=== PATIENT | male | born 1985 | race Caucasian/White ===

== ENCOUNTER 2019-04-29 07:00 | Outpatient (RCR) | payer OTHER, SELFPAY ==
--- NOTE | 2019-04-04 09:11 | HP.PTEVAL_ITS ---
Patient's Visit Information DESTINY MALAGON is a 33 year old M referred to Physical Therapy by Bravo Hatch DPM with a diagnosis of Plantar Fascitis. Date of Evaluation: 04/04/19 Physical Therapist: Arabella Meza DPT - Visit Plan Frequency: 2-3x /Week Duration: 4 Weeks Plan: Focus on core and hip strength/stabilization. - Subjective Findings: MD is thinking Plantar Fascitis- left heel has been bothering him for weeks- worse at end of day- good in the AM- was still running a lot. Last weekend he had a 50 mile rave- 5 miles in it dimitri hurt then every step was miserable- trail run. [place] better going up hill- flats were the worst. Able to finish the race- next day was miserable. Has not run in 8 days. Went and saw Dr. Hatch- had x-rays no bone spurs. Did have edema in bilateral LE. Had EPAT 2x last week. No brusing but did have mild edema. Pain is located in the distal calcaneus. Today he is 80% walking- knows its there. Has been wearing the night splint- tried to use a boot but it was miserable but being barefoot is the best/sandles. Plans to do EPAT this week as well. Next race is at the end of April-100 mile- both trail and road. Describes the pain as sharp and discomfort. No radiating pain. Running in a trail shoe- [employer]-fairly new- no insert. 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 Left side- does have mild radiating pain to the gluts- has always had underlying low back issues. Back feels better when he is running. Running- anywhere from 50- 70 miles a week 5-6 days- trails and roads. Does some pushups, sit ups and squats minor right before bed- maintainance. Sleep: not disturbed- side sleeper. PMHx: none Meds: none - Objective Posture: poor in standing and sitting- FH, RS, increased kyphosis in the thoracic spine. Gait: no deviation noted. Observation: good arch bilaterally. ROM: Lumbar: flexion hands to floor but slow to rise, Extn: neutral and reports discomfort, SB to the left WNL, SB to the right: WNL but reports discomfort, Rotation:decreased by 25% bilaterally with discomfort. Hip: left IR is tight but not diminished ankle/knee: WFL. SLS: 30 sec mild hip drop and discomfort in the heel. Palpation: tender along heel on the left foot on the medial side. lumbar paraspinals and gluts on the left. HR/TR: WNL. Strength: Core: poor, Hip: flexion: 4+/5, Abd: 4/5, Clam Glut Med: 4-/5, Extn: 4+/5, IR: 4/5, ER: 4- /5. Flex: HS: moderate, Gastroc: moderate. Special Test: slump on left: positive, Dural Signs: positive, LLD: negative Pelvic Alignment: WNL - Goals Goal 1:: Patient will be I with HEP and progression Goal Time Frame: 4-6 Weeks Goal 2:: Patient will maintain proper posture t/o tx session to demo increased core s/s Goal Time Frame: 4-6 Weeks Goal 3:: Patient will report 0/10 pain with running Goal Time Frame: 4-6 Weeks Goal 4:: Patient will demo 4+/5 strength in bilateral hips Goal Time Frame: 4-6 Weeks - Rehabilitation Potential Physical Therapy Diagnosis: Patient presents with hypomobility- he has decreased strength and stabilization of the lumar spine and pelvis leading to decreased ability to perform ADL's and pain in the LE with running Rehabilitation Potential: Fair - Anticipated Interventions Patient/Client Instruction: Educate patient on: Benefits of Fitness Program Therapeutic Exercise to Include: Strength training, Endurance training, Balance training, Body mechanics, Postural training, Flexibilty training, Gait and locomotor training, Dynamic Lumbar Stabilization, Vasquez Exercises For the Purpose of:: To improve muscle performance and motor function TENS: Yes Cryotherapy (ice pack, ice massage): Yes Thermo therapy (hot pack): Yes Ultrasound (thermal/non thermal): No For the Purpose of:: To decrease pain Thank you for the opportunity to evaluate your patient. For Medicare and Medicare HMO plans, please review the plan of care and approve it. It will need to be FAXED BACK to us at [phone] for Medicare purposes. For Medicare only, by signing this I certify the plan of care. Please let me know if there are questions or concerns regarding this plan of care. Physician Signature: Date:
--- NOTE | 2019-07-22 09:41 | HP.PT.NRP ---
HP - Discharge Summary (1) - Patient Information DESTINY MALAGON was seen in my office for initial evaluation on 04/04/19. The following Plan of Care was established for this patient: Initial Frequency: 2-3x /Week Initial Duration: 4 Weeks - Anticipated Interventions Patient/Client Instruction: Educate patient on: Benefits of Fitness Program Therapeutic Exercise to Include: Strength training, Endurance training, Balance training, Body mechanics, Postural training, Flexibilty training, Gait and locomotor training, Dynamic Lumbar Stabilization, Vasquez Exercises For the Purpose of:: To improve muscle performance and motor function TENS: Yes Cryotherapy (ice pack, ice massage): Yes Thermo therapy (hot pack): Yes Ultrasound (thermal/non thermal): No For the Purpose of:: To decrease pain This patient was last seen in our office . Pertinent comments regarding their Physical therapy will appear below: Patient has not attended PT in 4 weeks and is appropriate for d/c- return to MD for further evaluation as needed. At this point I will be discontinuing this patient from physical therapy. I would be happy to see this patient again in the future if found appropriate by the physician. Thank you! TOY LedezmaT
== END 2019-04-29 19:00 | disposition home or self-care (01) ==
LOC: PT 07:00
PROVIDERS: Family Provider Family Medicine; PCP Family Medicine; Visit Provider Podiatrist
DX: M72.2 Plantar fascial fibromatosis (principal)
CPT/HCPCS: 97110; 97162; 97530

== ENCOUNTER → 2019-08-02 16:46 | Outpatient (CLI) | payer OTHER, SELFPAY ==
[2017-12-01 09:53] VITALS: BMI 21.1
[2019-08-02 18:07] LABS: Hematocrit 45.2 % (40-54); Hemoglobin 14.9 g/dL (13.0-16.5); Mean Corpuscular Hgb 29.4 pg (27.0-32.0); Mean Corpuscular Volume 89.3 fL (80-94); Mean Platelet Vol. 9.5 fl (6.2-12.0); Platelet Count 335 K/mm3 (150-450); RBC Distribution Width CV 11.7 % (11.6-14.6); RBC Distribution Width SD 37.5 fl (35.1-43.9); Red Blood Count 5.06 M/mm3 (4.6-6.2); White Blood Count 7.9 K/mm3 (4.4-11.0)
[2019-08-02 18:39] LABS: Progesterone Level 0.32 ng/mL (See Comment); Vitamin B12 586 pg/mL (211-911)
[2019-08-02 18:48] LABS: Homocysteine 10.7 umol/L (3.2-10.7)
[2019-08-02 19:58] LABS: ALB/GLOB Ratio 1.2 RATIO (0.9-2.4); AST(SGOT) 20 U/L (15-37); Alanine Aminotransfer ALT/SGPT 24 U/L (16-61); Albumin, Serum 4.3 g/dL (3.2-5.0); Alkaline Phosphatase 62 U/L (45-117); Anion Gap 9 (5-15); BUN 20 mg/dL (7-18); BUN/Creat Ratio 22.5 RATIO (10-20); CRP < 2.90 mg/L (0.0-3.0); Chloride 103 mmol/L (98-107); Cholesterol 180 mg/dL (200); Creatinine, Serum 0.89 mg/dL (0.70-1.30); EST Glomerular Filtration Rate 104 mL/min (>60); Est Glom Filt Rate - Afr Amer 126 mL/min (>60); Estradiol 26.1 pg/mL; Free T3 2.3 pg/mL (2.18-3.98); Globulin 3.6 g/dL (2.2-4.2); Glucose 82 mg/dL (74-106); High Density Lipoprotein 88 mg/dL; Iron 79 ug/dL (65-175); Luteinizing Hormone 2.6 mIU/mL; Magnesium 2.3 mg/dL (1.6-2.6); PSA,Total - Annual Screen 0.22 ng/mL (0.00-4.00); Potassium 3.4 mmol/L (3.5-5.1); Prolactin 7.9 ng/mL; Protein, Total 7.9 g/dL (6.4-8.2); Sodium Level 138 mmol/L (136-145); T4 Free Direct 0.96 ng/dL (0.76-1.46); T4 Total, Thyroxin 8.3 ug/dL (4.5-12.1); Thyroid Stim Hormone (TSH) 0.62 uIU/mL (0.358-3.74); Triglycerides 73 mg/dL; Very Low Density Lipoprotein 15 mg/dL (5-40)
[2019-08-05 20:07] LABS: DHEA Sulfate 274.9 ug/dL (138.5-475.2); Insulin Like Growth Factor 181 ng/mL (88-246); Testosterone, Free 9.79 ng/dL (5.00-21.00)
[2019-08-08 13:22] LABS: Sex Hormone-binding Globulin 52.5 nmol/L (16.5-55.9); Testosterone, Total 306 ng/dL (264-916)
== END ==
PROVIDERS: Family Provider Family Medicine; PCP Family Medicine
DX: R53.82 Chronic fatigue, unspecified (principal); M62.81 Muscle weakness (generalized); R68.82 Decreased libido
CPT/HCPCS: 36415; 80053; 80061; 82306; 82533; 82607; 82627; 82670; 82746; 83001; 83002; 83036; 83090; 83540; 83735; 84144; 84146; 84153; 84270; 84305; 84402; 84403; 84436; 84439; 84443; 84481; 85027; 86140; 86141; 82626; G0103

== ENCOUNTER → 2019-08-23 16:53 | Outpatient (CLI) | payer OTHER, SELFPAY ==
[2017-12-01 09:53] VITALS: BMI 21.1
--- NOTE | 2019-08-23 16:56 | RAD_ITS ---
HISTORY: abdominal pain ADDITIONAL HISTORY: None. COMPARISON: None Technique: Supine and upright abdominal radiographs. Number of images including paperwork: 3 FINDINGS: FREE AIR: None detected. BOWEL GAS PATTERN: Nonobstructive. Moderate to large amount of colonic stool. CALCIFICATIONS: No definite urinary tract calculi. ORGANS: No evidence of organomegaly. SOFT TISSUES: Unremarkable. BONES: No acute skeletal findings. RAD/Abd Inc Decub and/or Erect IMPRESSION: No acute abdominal abnormality is radiographically apparent. at 2236 Reported and signed by: Solange Jordan MD Electronically Signed: Solange Jordan MD at 22:36 EST Tel , Service support ,
== END ==
PROVIDERS: Family Provider Family Medicine; PCP Family Medicine; Referring Provider Family Medicine; Visit Provider Family Medicine
DX: R10.9 Unspecified abdominal pain (principal)
CPT/HCPCS: 74019

== ENCOUNTER → 2020-11-10 08:45 | Outpatient (CLI) | payer OTHER, SELFPAY ==
--- NOTE | 2020-11-10 08:52 | MRI_ITS ---
STUDY: MRI LEFT REARFOOT WITHOUT CONTRAST REASON FOR EXAM: Male, 35 years old. LEFT HEEL, PLANTAR FASCIITIS TECHNIQUE: Standardized fat and water weighted pulse sequences were obtained in all 3 orthogonal planes. COMPARISON: None. FINDINGS: Normal subcutis adipose space. Normal posterior tibialis tendon. Normal flexor digitorum longus tendon. Normal flexor hallucis longus tendon. Normal peroneus longus and brevis tendons. Normal tibialis anterior tendon. Normal extensor hallucis longus tendon. Normal extensor digitorum longus tendons. Normal Achilles tendon and teno-osseous insertion. There is a plantar fasciitis with plantar fascial thickening and fascial edema, but without a focal tear. There is a plantar calcaneal spur with cancellous marrow edema consistent with a marrow stress phenomena. Normal intrinsic muscles of the rearfoot. Normal distal tibiofibular syndesmotic ligamentous complex. Normal lateral ligamentous complex. Normal subtalar ligaments and sinus tarsi. Normal deltoid ligamentous complexes. Normal plantar calcaneonavicular (spring) ligament. Normal tibiotalar articulation. Normal talar dome. Normal subtalar articulations. Normal talonavicular articulation. Normal calcaneocuboid articulation. Normal navicular-cuneiform articulations. MRI/Lower Ext/No Jt/w/o IMPRESSION: Plantar fasciitis with a tiny plantar calcaneal enthesophyte and stress reaction of the calcaneus. Electronically Signed: Cuate Martinez MD at 7:14 EST Tel , Service support ,
== END ==
PROVIDERS: PCP Family Medicine; Referring Provider Podiatrist; Visit Provider Podiatrist
DX: M72.2 Plantar fascial fibromatosis (principal)
CPT/HCPCS: 73718

== ENCOUNTER 2021-02-07 07:00 | Outpatient (RCR) | payer OTHER, SELFPAY ==
[2020-12-13 14:13] VITALS: BMI 24.8
--- NOTE | 2020-12-24 09:28 | HP.PTEVAL ---
Patient's Visit Information DESTINY MALAGON is a 35 year old M referred to Physical Therapy by Dr. Bravo Hatch DPM with a diagnosis of L plantar fascitis. Date of Evaluation: 12/24/20 Physical Therapist: Arabella Meza DPT - Visit Plan Frequency: 3x /Week Duration: 3 Weeks Plan: Increase LE strength to support ankle joint, improve flexibilty, increase staibilty around ankle, decrease inflammation - core strengt/stabilization. IE HEP: eccentric heel raise lower, gastroc and soleus standing stretch. DN, US, manual - Subjective Pt reports L heel pain since Nov ran 50 miles, then took it easy and didnt go away so then started back running and flared again. tried wokring through it for a few weeks. Got amnio-fix injection from Dr. Mamie florez took 4 weeks off (Sep?). Pt got MRI- bone brusing. Took 5 weeks off and got 3 tramio-injections- it improved but didnt make it go away. Pt is currently doing light running and has some good days. Pain: 3/10 directly in the heel, sharp pain: steak knife stuck in there. no radiating, sometimes to the sides of the heel. Pt denies numbness or tingling. worse: 7/10 standing and walking, some running, transitiong from sitting to standing. better: 1-2/10 unable to tell what maeks it better. Pt is a runner and runs 60-70 miles a week. Pt ran less than 10 because of pain, and be smart. 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 Pt typicall runs on the road. Pt reports jumping no trampoline, theragun, calf wedge. Pt denies wearing orthotics, tried some and it hurt more. Sleep: no problems sleeping, wakes up and takes off night slip. 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 Meds: none. PMHx: tore meniscus at end of 2019 - Objective Posture: FH,RS, pes cavus. Gait: proper heel toe progression, decreased stride length, Trendelenburg + bilateral. Palpation: no tenderness to around calcaneus or plantar fascia insertion. stairs: slight increase in pain ascending, recip with no HR. HR/TR: able with no increase in pain. SLS: 10 sec bilateral, no increase in pain. Strength: hip: flex: 4-/5, abd/add: 4-/5, knee: flex/ext: 4/5, ankle: DF/PF: 4/5, inver/ever: 4/5. ROM: hip/knee: WFL DF: 9 PF: 14. flexbility: hamstring: moderate, gastroc: modersate - Goals Goal 1:: Pt will be I with HEP and progression Goal Time Frame: 4-6 Weeks Goal 2:: Pt will reports 1-2/10 pain for 1 week in order to promote I functional mobility Goal Time Frame: 4-6 Weeks Goal 3:: Pt will demonstrate improved hip strength to 5/5 in order to improve stability through LE Goal Time Frame: 4-6 Weeks - Rehabilitation Potential Physical Therapy Diagnosis: Pt presetns with increased pain, decreased LE chain strength, and decreased flexibilty impacting ability to perform I functional mobility. Rehabilitation Potential: Good - Anticipated Interventions Patient/Client Instruction: Educate patient on: Plan of Care For the Purpose of:: To improve muscle performance and motor function Therapeutic Exercise to Include: Strength training, Power training, Endurance training, Balance training, Coordination, Agility training, Body mechanics, Postural training, Flexibilty training For the Purpose of:: To improve muscle performance and motor function, To increase tolerance to activity/condition/position Cryotherapy (ice pack, ice massage): Yes Thermo therapy (hot pack): Yes Ultrasound (thermal/non thermal): Yes Thank you for the opportunity to evaluate your patient. For Medicare and Medicare HMO plans, please review the plan of care and approve it. It will need to be FAXED BACK to us at [phone] for Medicare purposes. For Medicare only, by signing this I certify the plan of care. Please let me know if there are questions or concerns regarding this plan of care. Physician Signature: Date:
--- NOTE | 2021-01-24 08:15 | HP.PTREVAL ---
Dr. Bravo Hatch, DPCathy, It has been my pleasure to treat DESTINY MALAGON over the last 8 visits for L plantar fascitis. Please see the progress note below for an update on the physical therapy plan of care! Subjective: Pt. reports I have micaela doign a lot better. I was able to run 6 miles then the next day run 8 miles. Pt. reports 1/10 pain currently in his heel. He has been having some calf tightness as he has been running more. Objective/Function: Pt. is pretty consistent with his exercises at home. He did have a big improvement since last visit. He is to contiune with stretching, rolling and strengthening at home. He will tryu for 2 weeks then follow up with PT if needed. May come back sooner if needed. Plan Plan: Pt. to trial exercises on own and progression of miles with running as tolerated. Goals Goal 1:: Pt will be I with HEP and progression Goal Time Frame: 4-6 Weeks Goal Progress: Goal Met Goal 2:: Pt will reports 1-2/10 pain for 1 week in order to promote I functional mobility Goal Time Frame: 4-6 Weeks Goal Progress: Goal Met Goal 3:: Pt will demonstrate improved hip strength to 5/5 in order to improve stability through LE Goal Time Frame: 4-6 Weeks Goal Progress: Goal Met Goal 4:: LTG: Pt. to run upto 30 miles per week with 0-1/10 pain in heel. Anticipated Interventions Patient/Client Instruction: Educate patient on: Plan of Care For the Purpose of:: To improve muscle performance and motor function Therapeutic Exercise to Include: Strength training, Power training, Endurance training, Balance training, Coordination, Agility training, Body mechanics, Postural training, Flexibilty training For the Purpose of:: To improve muscle performance and motor function, To increase tolerance to activity/condition/position Cryotherapy (ice pack, ice massage): Yes Thermo therapy (hot pack): Yes Ultrasound (thermal/non thermal): Yes Please do not hesitate to contact me at [phone] by phone or if you have questions or concerns regarding this new plan of care! Sincerely, Mateusz Foreman DPT
== END 2021-02-07 19:00 | disposition home or self-care (01) ==
LOC: PT 07:00
PROVIDERS: PCP Family Medicine; Referring Provider Podiatrist; Visit Provider Podiatrist
DX: M72.2 Plantar fascial fibromatosis (principal)
CPT/HCPCS: 97035; 97110; 97140; 97162